=== PATIENT | male | born 1975 | race Caucasian/White ===

== ENCOUNTER 2023-11-15 09:44 | Day surgery (SDC) | payer OTHER ==
[~2023-11-15] VITALS: Ht 180.3 cm; Wt 163.2 kg
[~2023-11-15 09:44] MED LIST: LR 1,000 ML IV SCH
[2023-11-15] MEDS ORDERED: NS 20 ML IV ONE (10:50)
[2023-11-15] MEDS ORDERED: Ondansetron 4 MG/2 ML VIAL ONE (10:50)
[2023-11-15] MEDS ORDERED: fentaNYL 50 MCG/ML 2 ML VIAL ONE (10:50)
[2023-11-15] MEDS ORDERED: Lidocaine PF 2% (20 MG/ML) 5 ML VIAL ONE (10:50)
[2023-11-15] MEDS ORDERED: dexAMETHasone 10 MG/ML VIAL ONE (10:50)
[2023-11-15] MEDS ORDERED: Ketorolac 30 MG/ML VIAL ONE (10:50)
[2023-11-15] MEDS ORDERED: ASPIRIN 81M81 MG/TA2 PO (11:02)
[2023-11-15] MEDS ORDERED: LASIX 40MG TABL40 MG PO (11:03)
[2023-11-15] MEDS ORDERED: ALDACTONE50 MG PO (11:03)
[2023-11-15] MEDS ORDERED: FARXIGA10 PO (11:07)
[2023-11-15] MEDS ORDERED: ENTRESTO 49 MG1 EACH PO (11:09)
[2023-11-15] MEDS ORDERED: HYDROmorphone 1 MG/1 ML SYRINGE [PACU/SDC ONLY] IV PRN (11:15)
[2023-11-15] MEDS ORDERED: droPERidol 2.5 MG/ML 2 ML VIAL IV PRN (11:15)
[2023-11-15] MEDS ORDERED: fentaNYL 50 MCG/ML 1 ML SYRINGE/VIAL [PACU/SDC ONLY] IV PRN (11:15)
[2023-11-15] MEDS ORDERED: Ondansetron 4 MG/2 ML VIAL IV PRN ×2 (11:15→14:00)
[2023-11-15] MEDS ORDERED: hydrALAZINE 20 MG/ML 1 ML VIAL IV PRN (11:15)
[2023-11-15 11:37] VITALS: BP 130/62; PULSE 66; TEMP 97.6
[2023-11-15] MEDS ORDERED: BUPivacaine PF 0.5% w EPI (1:200,000) 10 ML VIAL IJ ONE (13:31)
[2023-11-15] MEDS ORDERED: NS 1,000 ML IV SCH (14:00)
[2023-11-15] MEDS ORDERED: Morphine 4 MG/ML VIAL IV PRN (14:00)
[2023-11-15] MEDS ORDERED: HYDROcodone/Acetaminophen 7.5-325 MG TAB PO PRN (14:00)
[2023-11-15 14:35] VITALS: BP 109/57; PULSE 72; TEMP 97.3
[2023-11-15 14:50] VITALS: BP 121/42; PULSE 64
[2023-11-15 15:05] VITALS: BP 128/59; PULSE 68
--- NOTE | 2023-11-15 15:25 | NUR ---
1435 RETURNS TO ROOM 2 PER CART WITH HOB ELEVATED 45 DEGREES. AWAKE, ALERT. RESP UNLABORED. VITAL SIGNS OBTAINED. ZACHERY WRAPPED DRESSING LEFT KNEE CLEAN DRY AND INTACT. NEURO/CIRC CHECKS LEFT LOWER EXTREMITY INTACT. ICE PACK TO LEFT KNEE. DENIES DISCOMFORT. CALL LIGHT AT SIDE. PARENTS IN ROOM 1450 HOB ELEVATED 75 DEGREES. TOLERATES PO WATER WITHOUT NAUSEA. 1505 DISCHARGE INSTRUCTIONS REVIEWED. PATIENT AND PARENTS VERBALIZE UNDERSTANDING. COPY PROVIDED IN DISCHARGE FOLDER. 1520 SITS ON EDGE CART. DRESSES WITH MINIMAL ASSIST
[2023-11-15 15:57] VITALS: BP 126/46; PULSE 65; TEMP 97.5
== END 2023-11-15 15:25 | disposition home or self-care (01) ==
LOC: SDCO 09:44
DX: S83.242A Other tear of medial meniscus, current injury, left knee, initial encounter (principal); S83.282A Other tear of lateral meniscus, current injury, left knee, initial encounter; M22.42 Chondromalacia patellae, left knee; G47.33 Obstructive sleep apnea (adult) (pediatric); E66.01 Morbid (severe) obesity due to excess calories
CPT/HCPCS: J0690; J1100; J1885; J2405; J2704; J3010; J7120

== ENCOUNTER 2023-12-16 12:13 | Day surgery (SDC) | payer OTHER ==
[2023-12-16] VITALS (9 sets, daily range): BP systolic 116–154; BP diastolic 56–91; PULSE 64–76; TEMP 97.8–98.1
[~2023-12-16] VITALS: Ht 180.3 cm; Wt 165.0 kg
[~2023-12-16 12:13] MED LIST changes: +ALDACTONE50 MG PO; +ASPIRIN 81M81 MG/TA2 PO; +ENTRESTO 49 MG1 EACH PO; +FARXIGA10 PO; +LASIX 40MG TABL40 MG PO
[2023-12-16] MEDS ORDERED: NORCO 325 MG-51 TAB PO (14:56)
[2023-12-16] MEDS ORDERED: MOTRIN 600600 MG/TAB PO (14:56)
[2023-12-16] MEDS ORDERED: Ondansetron 4 MG/2 ML VIAL ONE (15:02)
[2023-12-16] MEDS ORDERED: dexAMETHasone 10 MG/ML VIAL ONE (15:02)
[2023-12-16] MEDS ORDERED: fentaNYL 50 MCG/ML 2 ML VIAL ONE ×3 (15:02→16:18)
[2023-12-16] MEDS ORDERED: Lidocaine PF 2% (20 MG/ML) 5 ML VIAL ONE (15:02)
[2023-12-16] MEDS ORDERED: HYDROmorphone 1 MG/1 ML SYRINGE [PACU/SDC ONLY] IV PRN (15:15)
[2023-12-16] MEDS ORDERED: Ondansetron 4 MG/2 ML VIAL IV PRN ×2 (15:15→17:30)
[2023-12-16] MEDS ORDERED: hydrALAZINE 20 MG/ML 1 ML VIAL IV PRN (15:15)
[2023-12-16] MEDS ORDERED: Meperidine 50 MG/ML 1 ML VIAL IV PRN (15:15)
[2023-12-16] MEDS ORDERED: fentaNYL 50 MCG/ML 1 ML SYRINGE/VIAL [PACU/SDC ONLY] IV PRN (15:15)
[2023-12-16] MEDS ORDERED: Topical Skin Adhesive 1 EACH (1 ML) TOP ONE (15:50)
[2023-12-16] MEDS ORDERED: Morphine 4 MG/ML VIAL IV PRN (17:30)
--- NOTE | 2023-12-16 18:11 | NUR ---
PATIENT CAME FROM PACU IN BED. PATIENT DROWSY AND REPORTS FEELING HOT, TEMPERATURE WITHIN NORMAL RANGE. PATIENT ON 2L /. VSS WINL. CALL LIGHT WITHIN REACH. BED AT LOWEST POSITION. FAMILY AT BEDSIDE.
--- NOTE | 2023-12-16 23:40 | NUR ---
RT WALKED BY ROOM AND NOTICED PT ON 2L NC. PT STATES HE'S WAITING TO GO HOME BUT CAN'T UNTIL HE'S OFF OXYGEN. PT SATTING 97% ON 2L NC. FLOWMETER TURNED OFF BY RT. RT NOTIFIED RN THAT PT IS NOW ON RA. RT BACK IN PT'S ROOM AT 1950 TO ASSESS PT'S OXYGEN NEEDS. PT STILL ON RA SATTING 95%. RN NOTIFIED.
--- NOTE | 2023-12-17 00:38 | NUR ---
THE PATIENT DISCHARGED AT 10:54 PM AFTER COMPLETED DISCHARGE TEACHING. THE DISCHARGE INSTRUCTIONS WERE PROVIDED AND THE PATIENT VERBALIZED UNDERSTANDING. THE PTS PIV WAS REMOVED INTACT WITHOUT COMPLICATION. THE PATIENT DENIED AVC [place] HOLDING ANYTHING NEEDING RETURNED TO HIM TO INCLUDE MEDICATIONS. THE PATIENTS RIGHT GROIN INCISION SITE WAS GLUED AND C/D/I. VITAL SIGNS STABLE. THE PATIENT WAS ACCOMPANIED BY HIS MOTHER UPON DISHCARGE AND REFUSED A WC. THE PATIENT AMBULATED WITH A STEADY GAIT.
== END 2023-12-16 22:47 | disposition home or self-care (01) ==
LOC: SDCO 12:13 → SURG 18:00 → SDCO 22:47
DX: K40.90 Unilateral inguinal hernia, without obstruction or gangrene, not specified as recurrent (principal); D17.6 Benign lipomatous neoplasm of spermatic cord; G47.33 Obstructive sleep apnea (adult) (pediatric); Z79.82 Long term (current) use of aspirin
CPT/HCPCS: OP; C1781; J0690; J1100; J2405; J2704; J3010